=== PATIENT | male | born 1955 | race American Indian/Alaskan Native ===

== ENCOUNTER → 2020-01-05 | Outpatient (CLI) | payer OTHER ==
[~2020-01-05] MED LIST: CRUTCH3 USE; HYDCHL25 PO; IBUP400 PO; LISI5 PO; NAPR500 PO
[2020-01-05 09:59] LABS: Alanine Aminotransfer (ALT/SGP 39 U/L (12-78); Albumin, Blood 3.8 g/dL (3.4-5.0); Albumin/Globulin Ratio 1.2 (0.8-1.8); Alk Phos 88 U/L (40-126); Anion Gap 6 mmol/L (6-16); Aspartate Aminotrans (AST/SGOT 14 U/L (12-37); Blood Urea Nitrogen 16 mg/dL (8-24); Bun/Creatinine Ratio 11.8 (12.0-20.0); CHOL/HDL RATIO 3.3; CO2, Blood 30 mmol/L (21-32); Calcium, Blood 8.6 mg/dL (8.5-10.1); Chloride, Blood 104 mmol/L (98-108); Cholesterol 189 mg/dL (50-200); Creatinine, Blood 1.36 mg/dL (0.60-1.20); Globulin, Blood 3.1 g/dL (2.2-4.0); Glomerular Filtration Rate 53 (60-); Glucose, Blood 122 mg/dL (70-99); HDL Cholesterol 57 mg/dL (>39); LDL/HDL RATIO 1.9; Low Density Lipoprotein Chol 107 mg/dL (<110); Potassium, Blood 4.2 mmol/L (3.5-5.5); Sodium, Blood 140 mmol/L (136-145); Thyroid Stimulating Hormone 0.593 uIU/mL (0.360-4.800); Total Protein, Blood 6.9 g/dL (6.4-8.2); Triglycerides 123 mg/dL (30-160); Very Low Density Lipoprot Chol 24 mg/dL (6-32)
== END ==
LOC: LAB EV 09:28 → RAD SHORT 09:28
PROVIDERS: Nurse Practitioner Family
DX: E78.2 Mixed hyperlipidemia (principal)
CPT/HCPCS: 36415; 80053; 80061; 84443

== ENCOUNTER → 2021-07-12 | Outpatient (CLI) | payer OTHER ==
[2021-07-12 14:33] LABS: Microalbumin, Urine Quant. 8.41 mg/L (0.000-20.000); Protein, Urine Quantitative 16.2 mg/dL (0.0-11.9)
== END | disposition home or self-care (01) ==
LOC: LAB SHORT 03:00
PROVIDERS: Internal Medicine Nephrology
DX: E11.22 Type 2 diabetes mellitus with diabetic chronic kidney disease (principal); N18.30 Chronic kidney disease, stage 3 unspecified; D63.1 Anemia in chronic kidney disease; N25.81 Secondary hyperparathyroidism of renal origin; E55.9 Vitamin D deficiency, unspecified; E78.00 Pure hypercholesterolemia, unspecified; R76.9 Abnormal immunological finding in serum, unspecified; R94.5 Abnormal results of liver function studies; R94.6 Abnormal results of thyroid function studies
CPT/HCPCS: 81050; 82043; 82570; 84156